=== PATIENT | male | born 1960 | race Caucasian/White ===

== ENCOUNTER → 2020-05-31 | Outpatient (CLI) | payer OTHER | END | disposition home or self-care (01) | LOC: SHCH 12:54 | PROVIDERS: ATTEND Internal Medicine Cardiovascular Disease | DX: R07.9 Chest pain, unspecified (principal); I10 Essential (primary) hypertension | CPT/HCPCS: 93306; 93356; 93925; 93970 ==

== ENCOUNTER → 2020-06-02 | Outpatient (CLI) | payer OTHER ==
[~2020-06-02] VITALS: Ht 182.9 cm; Wt 148.3 kg
[~2020-06-02] MED LIST: REGADENOSON 0.4 MG/5 ML PF SYG IVP SCH
== END | disposition home or self-care (01) ==
LOC: SHCH 08:10 → EDUNIT# 09:00
PROVIDERS: ATTEND Internal Medicine Cardiovascular Disease
DX: I10 Essential (primary) hypertension (principal); R07.9 Chest pain, unspecified; R06.00 Dyspnea, unspecified
CPT/HCPCS: 78452; 93017; 96374; A9500 ×2; J2785

== ENCOUNTER → 2024-12-01 | Outpatient (CLI) | payer OTHER | END | disposition home or self-care (01) | LOC: SHCH 13:53 | PROVIDERS: ATTEND Internal Medicine Cardiovascular Disease | DX: I25.10 Atherosclerotic heart disease of native coronary artery without angina pectoris (principal) | CPT/HCPCS: 93306 ==

== ENCOUNTER 2025-07-29 07:21 | Day surgery (SDC) | payer OTHER ==
[2025-07-29] VITALS (10 sets, daily range): BP systolic 105–132; BP diastolic 50–61; PULSE 59–65; RESP 16–20; TEMP 97.3–97.9
[~2025-07-29] VITALS: Ht 182.9 cm; Wt 138.3 kg
[~2025-07-29 07:21] MED LIST changes: +ATOR40TA71 PO; +BUPR-49 PO; +DIVA500T2 PO; +ESOM40CA66 PO; +ISOS30TA92 PO; +LISI10TA24 PO; +LUBI8CAP5 PO; +NITR0.4T50 SL; -REGADENOSON 0.4 MG/5 ML PF SYG IVP SCH; +SUCR1TAB2 PO; +TICA90TA PO; +TYLENOL PO
[2025-07-29] MEDS ORDERED: TIOT4MIS8 IH (08:39)
[2025-07-29] MEDS ORDERED: ALBU18HF7 IH (08:39)
[2025-07-29] MEDS: 0.9%NACL 1000ML 1,000 ML IV ONE (08:46)
[2025-07-29] MEDS ORDERED: LIDOCAINE HCL 1% 20 ML VIAL ONE (11:08)
== END 2025-07-29 12:33 | disposition home or self-care (01) ==
LOC: ENDO 07:21 → DAH 07:21 → ENDO 12:33
PROVIDERS: ATTEND Internal Medicine Gastroenterology
DX: R13.10 Dysphagia, unspecified (principal); K22.70 Barrett's esophagus without dysplasia; K21.9 Gastro-esophageal reflux disease without esophagitis; K29.70 Gastritis, unspecified, without bleeding; J44.9 Chronic obstructive pulmonary disease, unspecified; E66.01 Morbid (severe) obesity due to excess calories; I12.0 Hypertensive chronic kidney disease with stage 5 chronic kidney disease or end stage renal disease; E11.22 Type 2 diabetes mellitus with diabetic chronic kidney disease; N18.9 Chronic kidney disease, unspecified; E78.5 Hyperlipidemia, unspecified; F43.10 Post-traumatic stress disorder, unspecified; K59.03 Drug induced constipation; K57.30 Diverticulosis of large intestine without perforation or abscess without bleeding; G47.33 Obstructive sleep apnea (adult) (pediatric); Z88.8 Allergy status to other drugs, medicaments and biological substances; Z68.41 Body mass index [BMI] 40.0-44.9, adult; Z90.49 Acquired absence of other specified parts of digestive tract; Z98.890 Other specified postprocedural states; Z79.899 Other long term (current) drug therapy
CPT/HCPCS: 82948 ×2; 43239; 43248; J7030 ×2; J2704; A4620; A7002; J3490